=== PATIENT | female | born 2000 | race Caucasian/White ===

== ENCOUNTER 2023-11-02 09:07 | Outpatient (REF) | payer OTHER, SELFPAY ==
--- NOTE | ~2023-11-02 | US_ITS ---
EXAMINATION: US PELVIS CLINICAL INFORMATION: Prolonged irregular menses for 4 months, LMP October 07 to present, one week of spotting in the medical COMPARISON: None available. TECHNIQUE: Ultrasound of the pelvis is performed using both transabdominal and transvaginal transducers along with Doppler. Transvaginal imaging is performed due to inadequate visualization transabdominally. FINDINGS: The uterus measures 7.1 x 2.9 x 4.3 cm and is anteverted. Endometrial thickness is 3 mm. No significant free fluid. Right ovary measures 2.9 x 2.0 x 1.9 cm, volume 5.6 mL and left ovary 3.1 x 2.2 x 2.0 cm, volume is 7.2 mL. Bilateral ovaries are grossly unremarkable, however, visualization is limited due to bowel gas. US/US pelvic and transvaginal IMPRESSION: 1. Endometrial thickness is 3 mm. 2. Bilateral ovaries are grossly unremarkable; however, visualization is limited due to bowel gas.
== END 2023-11-02 09:08 | disposition home or self-care (01) ==
LOC: HO.UMASIMG 09:07
PROVIDERS: Visit Provider Nurse Practitioner Women's Health
DX: N92.6 Irregular menstruation, unspecified (principal)
CPT/HCPCS: 76830; 76856